=== PATIENT | male | born 2000 | race Caucasian/White ===

== ENCOUNTER 2021-03-27 19:43 | Emergency (ER) | payer BC ==
[~2021-03-27] VITALS: Ht 185.4 cm; Wt 110.2 kg
[~2021-03-27 19:43] MED LIST: GUMMIES CHILDR1 EACH PO; MIRALAX17 G1 PO; SINGULAIR 10 MG10 M1 PO
[2021-03-27 21:31] LABS: URINE BILIRUBIN NEGATIVE (Negative); URINE BLOOD NEGATIVE (Negative); URINE CLARITY CLEAR; URINE COLOR YELLOW; URINE GLUCOSE-RANDOM* NEGATIVE (Negative); URINE KETONES NEGATIVE (Negative); URINE LEUKOCYTES-REFLEX NEGATIVE (Negative); URINE NITRITE-REFLEX NEGATIVE (Negative); URINE PROTEIN (DIPSTICK) NEGATIVE (Negative); URINE SPECIFIC GRAVITY >= 1.030 (1.005-1.035)
[2021-03-27 22:09] LABS: ABSOLUTE NEUTROPHILS 7.4 thou/uL (1.4-8.2); BASOPHILS 0.6 % (0.0-2.0); EOSINOPHILS 4.8 % (0.0-3.0); HEMATOCRIT 43.1 % (42.0-52.0); HEMOGLOBIN 15.1 gm/dL (14.0-18.0); LYMPHOCYTES 21.6 % (24.0-44.0); MCH 30.9 pg (26.0-34.0); MCHC 35.1 g/dL (28.0-37.0); MCV 87.9 fL (80.0-100.0); MONOCYTES 6.3 % (1.0-8.0); PLATELET COUNT 263 thou/uL (150-400); POLYS 66.7 % (36.0-66.0); RBC 4.91 mil/uL (4.50-6.00); RDW 13.3 % (10.5-14.5); WBC 11.1 thou/uL (4.0-11.0)
[2021-03-27 22:20] LABS: CREATININE 0.9 mg/dL (0.7-1.3)
[2021-03-27 22:21] LABS: ALBUMIN 4.3 g/dL (3.4-5.0); CALCIUM 9.3 mg/dL (8.5-10.1); DIRECT BILIRUBIN 0.1 mg/dL (<0.1-0.2); TOTAL BILIRUBIN 0.9 mg/dL (0.2-1.0); TOTAL PROTEIN 7.9 g/dL (6.4-8.2)
[2021-03-28] MEDS ORDERED: ZOFRAN ODT4 MG PO (00:06)
[2021-03-28 00:14] VITALS: BP 109/61
== END 2021-03-28 00:21 | disposition home or self-care (01) ==
LOC: ER 19:43
PROVIDERS: Emergency Medicine
DX: R10.817 Generalized abdominal tenderness (principal); R11.2 Nausea with vomiting, unspecified; R19.7 Diarrhea, unspecified; J45.909 Unspecified asthma, uncomplicated